=== PATIENT | male | born 1995 | race Hispanic/Latino ===

== ENCOUNTER 2023-05-26 11:12 | Observation (INO) | payer BC ==
[~2023-05-26] VITALS: Ht 172.7 cm; Wt 99.0 kg
[2023-05-26 11:54] LABS: BASOPHILS # (AUTO) 0.05 K/uL (0.00-0.20); BASOPHILS % (AUTO) 0.7 % (0.0-5.0); EOSINOPHILS # (AUTO) 0.86 K/uL (0.00-0.70); EOSINOPHILS % (AUTO) 12.4 % (0.0-8.0); HEMATOCRIT 49.9 % (42-54); IMMATURE GRANULOCYTE ABSOLUTE 0.01 K/uL (0-1); LYMPHOCYTES % (AUTO) 29.4 % (21.0-51.0); MEAN CORPUSCULAR HEMOGLOBIN 28.9 pg (27.0-33.0); MEAN CORPUSCULAR HGB CONC 34.1 g/dL (32.0-36.0); MEAN CORPUSCULAR VOLUME 84.9 fL (79-99); MONOCYTES # (AUTO) 0.5 K/uL (0.1-1.0); MONOCYTES % (AUTO) 7.4 % (3.0-13.0); NEUTROPHILS # (AUTO) 3.5 K/uL (1.8-7.7); PLATELET COUNT (AUTO) 220 K/uL (130-400); RED BLOOD CELL COUNT(AUTO) 5.88 MIL/uL (4.50-6.20); RED CELL DISTRIBUTION WIDTH 13.2 % (11.0-15.5); WHITE BLOOD COUNT (AUTO) 6.9 K/uL (4.8-10.8)
[2023-05-26 12:01] LABS: CARBON DIOXIDE 32 mmol/L (21-32); CHLORIDE 103 mmol/L (101-111); CREATININE 1.1 mg/dL (0.5-1.5); GLOMERULAR FILTR. RATE CALC 95 mL/min (>90); GLUCOSE,RANDOM 100 mg/dL (70-105); POTASSIUM 4.4 mmol/L (3.5-5.1); SODIUM SERUM 142 mmol/L (136-145); UREA NITROGEN, BLOOD 12 mg/dL (7-18)
[2023-05-26 12:04] LABS: INR 0.97 (0.85-1.15); PROTHROMBIN TIME 11.3 SEC (9.6-11.6)
[2023-05-26 12:24] LABS: ALCOHOL, BLOOD < 3 mg/dL (0-10); LDL DIRECT 115 mg/dL (0-99)
[2023-05-26 12:54] LABS: CREATINE KINASE, TOTAL 1450 U/L (21-232)
[2023-05-26] MEDS ORDERED: 0.9%NACL 1000ML 2,000 ML IV ONE (13:00)
[2023-05-26 13:57] LABS: ALBUMIN 4.3 g/dL (3.5-5.0); BILIRUBIN,DIRECT 0.3 mg/dL (0.0-0.3); BILIRUBIN,TOTAL 2.2 mg/dL (0.2-1.0); TOTAL PROTEIN, SERUM 7.9 g/dL (6.0-8.3)
[2023-05-26] MEDS ORDERED: ONDANSETRON 4MG INJ IV PRN (14:00)
[2023-05-26] MEDS ORDERED: ACETAMINOPHEN 325 MG TAB PO PRN ×2 (14:00)
[2023-05-26 14:12] LABS: APPEARANCE,URINE CLEAR (CLEAR); BILIRUBIN,URINE NEGATIVE (NEGATIVE); COLOR,URINE LIGHT-YELLOW (YELLOW); GLUCOSE, URINE (UA) NEGATIVE (NEGATIVE); KETONES,URINE NEGATIVE (NEGATIVE); LEUKOCYTE ESTERASE ,URINE NEGATIVE Leu/uL (NEGATIVE); NITRATE,URINE NEGATIVE (NEGATIVE); OCCULT BLOOD,URINE NEGATIVE (NEGATIVE); PH,URINE 7.5 (5.0-8.0); PROTEIN,URINE 10 mg/dL (NEGATIVE); UROBILINOGEN,URINE 0.2 mg/dL (0.2-1.0)
[2023-05-26] MEDS: 0.9%NACL 1000ML 1,000 ML IV SCH ×2 (14:17→16:39)
[2023-05-26 14:21] LABS: ADD UA MICROSCOPIC NO; AMPHET/METH SCREEN,URINE NEGATIVE (NEGATIVE); BARBITURATE SCREEN, URINE NEGATIVE (NEGATIVE); BENZODIAZEPINES SCREEN,URINE NEGATIVE (NEGATIVE); CANNABINOID SCREEN,URINE NEGATIVE (NEGATIVE); COCAINE SCREEN,URINE NEGATIVE (NEGATIVE); OPIATE SCREEN,URINE NEGATIVE (NEGATIVE); PHENCYCLIDINE SCREEN,URINE NEGATIVE (NEGATIVE)
[2023-05-26] MEDS: ACYCLOVIR 200 MG CAPSULE PO SCH ×2 (14:24→20:41)
[2023-05-26] MEDS ORDERED: PREDNISONE 20 MG TABLET PO ONE (14:30)
[2023-05-26 16:20] VITALS: BP 130/73; PULSE 67; RESP 18
[2023-05-26 20:00] VITALS: BP 131/76; PULSE 72; RESP 20
[2023-05-26] MEDS: FAMOTIDINE 20MG TAB PO SCH (20:40)
[2023-05-26 20:47] VITALS: O2SAT 96
[2023-05-26 23:36] VITALS: BP 127/70; PULSE 82; RESP 20
[2023-05-27] MEDS: 0.9%NACL 1000ML 1,000 ML IV SCH (02:44)
[2023-05-27 03:37] LABS: HEMATOCRIT 45.6 % (42-54); MEAN CORPUSCULAR VOLUME 85.4 fL (79-99); RED BLOOD CELL COUNT(AUTO) 5.34 MIL/uL (4.50-6.20); RED CELL DISTRIBUTION WIDTH 13.1 % (11.0-15.5); WHITE BLOOD COUNT (AUTO) 8.8 K/uL (4.8-10.8)
[2023-05-27 03:41] VITALS: BP 122/62; PULSE 69; RESP 20
[2023-05-27 03:59] LABS: ALBUMIN 3.5 g/dL (3.5-5.0); BILIRUBIN,TOTAL 1.3 mg/dL (0.2-1.0); CREATININE 0.8 mg/dL (0.5-1.5); POTASSIUM 4.2 mmol/L (3.5-5.1); TOTAL PROTEIN, SERUM 6.8 g/dL (6.0-8.3)
[2023-05-27 07:50] VITALS: O2SAT 96
[2023-05-27 08:00] VITALS: BP 119/75; PULSE 76; RESP 16
[2023-05-27] MEDS ORDERED: PREDNISONE 20 MG TABLET PO ONE (09:00)
[2023-05-27] MEDS: ACYCLOVIR 200 MG CAPSULE PO SCH (09:25)
[2023-05-27] MEDS: FAMOTIDINE 20MG TAB PO SCH (09:25)
[2023-05-27] MEDS ORDERED: PRED50TA2 PO (10:27)
[2023-05-27] MEDS ORDERED: VALA500T42 PO (10:27)
[2023-05-27 12:00] VITALS: BP 131/78; PULSE 65; RESP 16
== END 2023-05-27 14:50 | disposition home or self-care (01) ==
LOC: EDH 11:12 → EDHIP 13:50 → 3AH 16:20
PROVIDERS: ADMIT Hospitalist; ATTEND Hospitalist
DX: M62.82 Rhabdomyolysis (principal); G51.0 Bell's palsy; Z79.899 Other long term (current) drug therapy
CPT/HCPCS: 96361 ×2; 99285; 82550 ×3; 80076; 83721; 83735; 84484; 80048; 83880; 80305; 85025; 85610; 85730; 81003; 36415 ×2; 71045; 70450; 93005 ×2; 96374; 80053; 85027; G0378 ×25; J7030; J2405

== ENCOUNTER 2023-12-17 14:02 | Emergency (ER) | payer BC ==
[~2023-12-17] VITALS: Ht 172.7 cm; Wt 85.7 kg
[~2023-12-17 14:02] MED LIST: PRED50TA2 PO; VALA500T42 PO
[2023-12-17 14:50] VITALS: PULSE 78; RESP 20
[2023-12-17] MEDS: IPRATROPIUM 0.5 MG/2.5 ML INH IH ONE (14:50)
[2023-12-17] MEDS: DEXAMETHASONE SOD PHOSPHATE 4 MG/ML 1ML VIAL IV ONE (14:53)
[2023-12-17 15:22] LABS: INFLUENZA TYPE A NEGATIVE FOR TYPE A (NEG); INFLUENZA TYPE B NEGATIVE FOR TYPE B (NEG)
[2023-12-17 15:28] LABS: SARS-CoV-2, RNA, NAAT NEGATIVE SARS CoV-2 (NEGATIVE)
[2023-12-17 16:07] VITALS: PULSE 86; RESP 18
[2023-12-17] MEDS: ALBUTEROL 0.083% 2.5 MG/3 ML INH IH ONE (16:07)
[2023-12-17] MEDS ORDERED: FLUT1BLS12 IH (16:57)
[2023-12-17] MEDS ORDERED: MONT5TAB25 PO (16:57)
[2023-12-17] MEDS ORDERED: METH4TAB3 PO (16:57)
[2023-12-17] MEDS ORDERED: ALBUHFA IH (16:57)
[2023-12-17 17:18] VITALS: BP 138/92; PULSE 86; RESP 18; O2SAT 96
== END 2023-12-17 17:21 | disposition home or self-care (01) ==
LOC: EDH 14:02
DX: J45.901 Unspecified asthma with (acute) exacerbation (principal); Z20.822 Contact with and (suspected) exposure to COVID-19
CPT/HCPCS: 99284; 96374; 87635; 87420; 87804 ×2; 94640 ×2; J1100

== ENCOUNTER 2024-06-21 22:42 | Emergency (ER) | payer BC ==
[~2024-06-21] VITALS: Ht 172.7 cm; Wt 95.7 kg
[~2024-06-21 22:42] MED LIST changes: +ALBUHFA IH; +FLUT1BLS12 IH; +METH4TAB3 PO; +MONT5TAB25 PO
--- NOTE | 2024-06-21 23:21 | ERN ---
ED Note History of Present Illness Stated Complaint: C/O ABSCESS/LUMP TO SCROTUM Chief Complaint: Abscess Time Seen by MD: 23:01 Dictation: This is a 28-year-old male who came into the ER with complaints of swelling and pain of the right side of the scrotum. That started a couple of days ago and he felt like a lump on palpation. Low-grade fever. No penile discharge or blood. No burning micturition. No his tory of any injury to the scrotum. Did state that he was palpating it and " messing" with the scrotum. No history of any previous tuberculosis or any similar presentations. Temperature 100.2 pulse 105 respirations 20 blood pressure 142/90 pulse oximetry 98 % on room air Allergies: Coded Allergies: No Known Allergies (Unverified Allergy, Unknown, 05/26/23) Home Meds Active Scripts Clindamycin HCl (Clindamycin HCl) 300 Mg Capsule, 1 CAP PO QID for 10 Days, #40 CAP 0 Refills Prov:LONDON WILKERSON MD 06/22/24 Methylprednisolone (Medrol) 4 Mg Tab.ds.pk, 4 MG PO DAILY, #1 PACK Prov:SANFORD CARSON 12/17/23 Albuterol Sulfate (Ventolin Hfa/Proventil Hfa/Proair Hfa) 90 Mcg Puff, 2 PUFF IH Q4H PRN for SHORTNESS OF BREATH/WHEEZING for 30 Days, #1 INH 0 Refills Prov:SANFORD CARSON 12/17/23 Montelukast Sodium (Montelukast Sodium) 5 Mg Tab.chew, 5 MG PO DAILY for 30 Days, #30 TAB.CHEW Prov:SANFORD CARSON 12/17/23 Fluticasone Propion/Salmeterol (Fluticasone-Salmeterol 250-50) 250 Mcg-50 Mc g/Dose Blst.w.dev, 1 PUFF IH [id number], #1 INHALER Prov:SANFORD CARSON 12/17/23 Valacyclovir HCl (Valacyclovir) 500 Mg Tablet, 500 MG PO TID, #21 TAB 0 Refills Prov:BRIAN WELLS AGPCNP 05/27/23 Prednisone (Prednisone) 50 Mg Tablet, 60 MG PO DAILY, #5 TAB Prov:BRIAN WELLS AGPCNP 05/27/23 Past Medical History Past Medical History: No Pertinent History Surgical History: None Family History: Negative Social History: Negative RN Note Reviewed/Agreed w/PFSH: Yes Review of System Dictation As described in the history of present illness Constitutional: Negative for fever,chills, and weight loss Eyes: Negative for injury, pain,redness, and discharge ENT: Negative for injury,pain or swelling Cardiovascular: Negative for chest pain, palpitations, and edema Respiratory: Negative for shortness of breath, cough, and wheezing, Abdomen/GI: Negative for abdominal pain, nausea, vomiting, diarrhea, and constipation Back: Negative for injury and pain : Negative for injury, bleeding and discharge MS/Extremity: Negative for injury and deformity Skin: Negative for rash, and discoloration Neuro: Negative for headache, weakness, numbness, tingling, and seizure Psych: Negative for suicide ideation, homicidal ideation, and hallucinations Initial Vital Sign VS Vital Signs Date Time Temp Pulse Resp B/P (MAP) Pulse Ox O2 Delivery O2 Flow Rate FiO2 06/21/24 22:44 100.2 105 20 142/99 99 Room Air 06/22/24 02:16 0 21 Physical Exam Dictation General: awake, alert, NAD Head/Face: Normocephalic, atraumatic Eyes: PERRL, EOMI, vision at baseline ENT: oral cavity clear, TMs clear, no signs of infection Neck: Trachea midline, supple, no nuchal rigidity Cardiovascular: RRR, normal S1/S2, No MRGs, no JVD Respiratory: CTAB, no respiratory distress, No rales or wheezes Abdomen: Soft, non-tender, non-distended, normal bowel sounds, no guarding or rebound. -right side of the scrotum 2-3 mm area of pustule noted and on palpation mild surrounding induration was noted. Skin: Warm, dry, normal turgor, no rash MS/Extremity: Pulses equal, no cyanosis, neurovascular intact, FROM Neuro: COAx4, GCS 15, strength 5/5, CN 2-12 intact, normal cerebellar exam, normal gait, Psych: Normal behavior, mood, and affect normal Extremities-trace edema without any palpable cords, Homans sign is negative Results (Laboratory/Radiology) Laboratory/Radiology Laboratory Tests Test 06/21/24 23:18 06/22/24 00:58 White Blood Count 8.9 K/uL (4.8-10.8) Red Blood Count 5.54 MIL/uL (4.50-6.20) Hemoglobin 16.2 g/dL (14.0-18.0) Hematocrit 47.1 % (42-54) Mean Corpuscular Volume 85.0 fL (79-99) Mean Corpuscular Hemoglobin 29.2 pg (27.0-33.0) Mean Corpuscular Hemoglobin Concent 34.4 g/dL (32.0-36.0) Red Cell Distribution Width 13.5 % (11.0-15.5) Platelet Count 215 K/uL (130-400) Mean Platelet Volume 10.2 fL (7.5-10.5) Immature Granulocyte % (Auto) 0.3 % (0-1) Neutrophils (%) (Auto) 69.9 % (40.0-77.0) Lymphocytes (%) (Auto) 11.8 % (21.0-51.0) L Monocytes (%) (Auto) 10.1 % (3.0-13.0) Eosinophils (%) (Auto) 7.5 % (0.0-8.0) Basophils (%) (Auto) 0.4 % (0.0-5.0) Neutrophils # (Auto) 6.2 K/uL (1.8-7.7) Lymphocytes # (Auto) 1.1 K/uL (1.0-4.8) Monocytes # (Auto) 0.9 K/uL (0.1-1.0) Eosinophils # (Auto) 0.67 K/uL (0.00-0.70) Basophils # (Auto) 0.04 K/uL (0.00-0.20) Absolute Immature Granulocyte (auto 0.03 K/uL (0-1) Nucleated Red Blood Cells 0.0 % (0.0-0.19) Sodium Level 142 mmol/L (136-145) Potassium Level 3.7 mmol/L (3.5-5.1) Chloride Level 103 mmol/L (101-111) Carbon Dioxide Level 30 mmol/L (21-32) Blood Urea Nitrogen 16 mg/dL (7-18) Creatinine 1.0 mg/dL (0.5-1.3) Glomerular Filtration Rate Calc 106 mL/min (>90) Random Glucose 106 mg/dL (70-105) H Total Calcium 9.1 mg/dL (8.5-10.1) Urine Color LIGHT-YELLOW (YELLOW) Urine Appearance CLEAR (CLEAR) Urine pH 7.0 (5.0-8.0) Urine Specific [place] 1.022 (1.001-1.031) Urine Protein NEGATIVE mg/dL (NEGATIVE) Urine Glucose (UA) NEGATIVE mg/dL (NEGATIVE) Urine Ketones NEGATIVE mg/dL (NEGATIVE) Urine Occult Blood NEGATIVE (NEGATIVE) Urine Nitrate NEGATIVE (NEGATIVE) Urine Bilirubin NEGATIVE mg/dL (NEGATIVE) Urine Urobilinogen 0.2 mg/dL (0.2-1.0) Urine Leukocyte Esterase NEGATIVE Yohana/uL Labs Reviewed?: Yes Ultrasound Comment: Preliminary result of scrotum ultrasound per device repair technician showed right testicle was homogeneous with a normal limits epididymis and color Doppler was within normal limits however on the scrotum there was a small hypoechoic area with peripheral vascularity noted. Left testicle was homogeneous with a normal limits as well as epididymis with a normal limits. ED Course ED Course Orders Procedure Category Date Status Time Cbc With Differential LAB 06/21/24 Complete 23:01 Basic Metabolic Panel LAB 06/21/24 Complete 23:01 Us Scrotum & Contents US 06/21/24 Taken 23:01 Ceftriaxone 1g Vial PHA 06/22/24 Complete (Rocephine 1g Inj) 00:30 0.9%Nacl 1000ml (Ns PHA 06/22/24 Complete 1000ml) 00:30 Morphine 2mg Syg PHA 06/22/24 Complete (Morphine 2mg Syg) 00:30 Urinalysis Profile LAB 06/22/24 Complete 00:53 Current Medications Medications (Trade) Dose Ordered Sig/Diamond Route PRN Reason Start Time Stop Time Status Last Admin Dose Admin Ceftriaxone Sodium (ROCEphine 1G INJ) 1 gm ONCE ONCE IVPB 06/22/24 00:30 06/22/24 00:31 DC 06/22/24 00:50 Morphine Sulfate (morPHINE 2MG SYG) 2 mg ONCE ONCE IVP 06/22/24 00:30 06/22/24 00:31 DC Sodium Chloride 1,000 ml @ 0 mls/hr ONCE ONCE IV 06/22/24 00:30 06/22/24 00:31 DC 06/22/24 00:49 Vital Signs Date Time Temp Pulse Resp B/P (MAP) Pulse Ox O2 Delivery O2 Flow Rate FiO2 06/22/24 02:16 98.4 76 18 126/80 98 Room Air* 0 21 06/21/24 22:44 100.2 105 20 142/99 99 Room Air We will perform diagnostic labs, advanced imaging and administer medications according to the patient's complaint. Once the results are available, will review and personally interpreted the labs to rule out any acute life- threatening emergency the trach require immediate intervention and treatment. I will then re-evaluate the patient after treatment and diagnostic exams have return to determine whether the patient requires any further testing, can safely be discharged home or need further admission to hospital for additional treatment and evaluation. Labs reviewed CBC BNP 7 and urinalysis are within normal limits Scrotum ultrasound revealed a hypoechoic area in the right scrotum about 9 x 5 by 6 mm Empiric antibiotic therapy was initiated warm compresses I had a long discussion with him and family member regarding the ultrasound findings and plans to initiate IV antibiotic therapy prior to discharge on oral antibiotics. Referral given to urologist. Medical Decision Making MDM MDM: Differential diagnosis: Furuncle, superficial skin infection, scrotal cellulitis, scrotal abscess, epididymitis Rationale: Tests considered and ordered secondary to shared decision making include: Previous outside records reviewed: Old ER visits. Risk of complication and/or morbidity or mortality of patient management: None Medications-Per medication reconciliation Need for hospitalization: Patient does not meet criteria for hospitalization. Need for emergency major/minor surgery: No There are no social concerns with this patient. Prescription drug management Prescriptions will include symptomatic care Patient's prior external medical records from other ER visits were reviewed by me as indicated. Prior testing and results from previous visits were reviewed. Prior tests were taken into account with medical decision making and resource utilization, independent historian/historians were used to obtain complete medical history. I independently interpreted the test that were performed, results were reviewed by me and considered findings on radiology if ordered. Medical management and examination interpretation discussions were had by me with other qualified healthcare professionals as indicated for the patient's care. Problem List Problem List: (1) Abscess of scrotal wall (2) Cellulitis of scrotum DX & DISP Disposition: Discharge Departure Impression: Primary Impression: Cellulitis of scrotum Additional Impression: Abscess of scrotal wall Condition: Stable Scripts Clindamycin HCl (Clindamycin HCl) 300 Mg Capsule 1 CAP PO QID for 10 Days, #40 CAP 0 Refills Prov: LONDON WILKERSON MD 06/22/24 Additional Instructions: Patient and the caregiver have been informed of all the diagnostic tests and the imaging conducted during the today's visit to the emergency room and has verbalized understanding of the results I have personally reviewed and interpreted all diagnostic exams performed here in the ER today as well as the vital signs documented by the nursing staff. The patient is now being discharg ed to home and should follow up with the primary care physician or the specialist as directed by the ER staff. Follow-up with primary care provider in 1 to 2 days. Take medications as directed here in the emergency room. Okay to continue home medications unless otherwise discussed during your visit in the emergency room today. Return to your nearest emergency room if symptoms worsen or if there is no improvement. Call 911 if you need immediate assistance. Take Tylenol or Motrin [id number] as needed and if no contraindications are present. Increase oral hydration. A wound culture or urine culture was ordered here in the emergency room department please follow-up with primary care provider and advise them to get repeat ports from our facility. If you had any Nba wrap/splints that were applied here, please do not remove them until you see your primary care or specialty. Referrals: SHANELL OG (PCP) JOÃO OROURKE MD, ANURADHA R MD Jun 21, 2024 23:21
[2024-06-21 23:23] LABS: BASOPHILS # (AUTO) 0.04 K/uL (0.00-0.20); BASOPHILS % (AUTO) 0.4 % (0.0-5.0); EOSINOPHILS # (AUTO) 0.67 K/uL (0.00-0.70); EOSINOPHILS % (AUTO) 7.5 % (0.0-8.0); HEMATOCRIT 47.1 % (42-54); IMMATURE GRANULOCYTE ABSOLUTE 0.03 K/uL (0-1); LYMPHOCYTES # (AUTO) 1.1 K/uL (1.0-4.8); LYMPHOCYTES % (AUTO) 11.8 % (21.0-51.0); MEAN CORPUSCULAR HEMOGLOBIN 29.2 pg (27.0-33.0); MEAN CORPUSCULAR HGB CONC 34.4 g/dL (32.0-36.0); MONOCYTES # (AUTO) 0.9 K/uL (0.1-1.0); MONOCYTES % (AUTO) 10.1 % (3.0-13.0); NEUTROPHILS # (AUTO) 6.2 K/uL (1.8-7.7); NEUTROPHILS % (AUTO) 69.9 % (40.0-77.0); PLATELET COUNT (AUTO) 215 K/uL (130-400); RED BLOOD CELL COUNT(AUTO) 5.54 MIL/uL (4.50-6.20); RED CELL DISTRIBUTION WIDTH 13.5 % (11.0-15.5); WHITE BLOOD COUNT (AUTO) 8.9 K/uL (4.8-10.8)
[2024-06-21 23:30] LABS: POTASSIUM 3.7 mmol/L (3.5-5.1)
[2024-06-22] MEDS ORDERED: CLIN-141 PO (00:49)
[2024-06-22] MEDS: 0.9%NACL 1000ML 1,000 ML IV ONE (00:49)
[2024-06-22] MEDS: cefTRIAXone 1G VIAL IVPB ONE (00:50)
[2024-06-22] MEDS: morPHINE 2 MG SYG IVP ONE (00:50)
[2024-06-22 01:13] LABS: APPEARANCE,URINE CLEAR (CLEAR); BILIRUBIN,URINE NEGATIVE (NEGATIVE); COLOR,URINE LIGHT-YELLOW (YELLOW); GLUCOSE, URINE (UA) NEGATIVE (NEGATIVE); KETONES,URINE NEGATIVE (NEGATIVE); LEUKOCYTE ESTERASE ,URINE NEGATIVE Leu/uL (NEGATIVE); NITRATE,URINE NEGATIVE (NEGATIVE); OCCULT BLOOD,URINE NEGATIVE (NEGATIVE); PROTEIN,URINE NEGATIVE (NEGATIVE); UROBILINOGEN,URINE 0.2 mg/dL (0.2-1.0)
[2024-06-22 01:16] LABS: ADD UA MICROSCOPIC NO
[2024-06-22 02:16] VITALS: BP 126/80; PULSE 76; RESP 18; TEMP 98.4; O2SAT 98
--- NOTE | 2024-06-22 12:25 | HMCIMG ---
US SCROTUM & CONTENTS REASON: evaluate abscess- pain swelling fevers COMPARISON: None TECHNIQUE: Routine scrotal imaging protocol was performed. Vascular Doppler evaluation was performed with spectral analysis and color flow imaging. FINDINGS: Right testicle is 4.3 x 2.5 x 3.1 cm, left 4.6 x 2.0 x 3.4 cm. There are no focal parenchymal lesions. There is normal and symmetrical appearing blood flow to the testicles. The epididymis appear normal. There is a very small focal area of sonolucency in the right scrotal wall. This measures 6 x 9 mm. Remainder of the right scrotal wall appears thickened but otherwise unremarkable. IMPRESSION: 1. Possible very small right scrotal abscess measuring 6 x 9 mm. 2. Otherwise unremarkable exam.
== END 2024-06-22 02:17 | disposition home or self-care (01) ==
LOC: EDH 22:42
DX: N49.2 Inflammatory disorders of scrotum (principal); Z79.51 Long term (current) use of inhaled steroids; Z79.52 Long term (current) use of systemic steroids; Z79.624 Long term (current) use of inhibitors of nucleotide synthesis; Z79.899 Other long term (current) drug therapy
CPT/HCPCS: 99284; 80048; 85025; 81003; 36415; 76870; 96374; J7030; J0696; J2270